=== PATIENT | female | born 1995 | race Caucasian/White ===

== ENCOUNTER → 2019-05-06 | Outpatient (CLI) | payer OTHER ==
[~2019-05-06] MED LIST: AMOXICILLIN500 MG PO; BACTRIM DS 8001 TA1 PO; DOXYCYCLINE100 M3 PO; MOTRIN800 MG PO
== END | disposition home or self-care (01) ==
LOC: RAD 12:24
DX: R76.11 Nonspecific reaction to tuberculin skin test without active tuberculosis (principal)

== ENCOUNTER → 2023-07-06 | Outpatient (CLI) | payer OTHER ==
[~2023-07-06] MED LIST changes: +DECADRON6 M1 PO; +PROVENTIL HFA6.7 GM INH; +TAMIFLU 75MG CA75 MG PO; +ZITHROMAX250 MG PO
[2023-07-06 16:23] LABS: BUN 6 mg/dl (9-23); CHLORIDE 108 mmol/L (98-107); POTASSIUM 3.6 mmol/L (3.4-5.1)
== END | disposition home or self-care (01) ==
LOC: LAB 15:47
PROVIDERS: ATTEND Internal Medicine
DX: U07.1 COVID-19 (principal)

== ENCOUNTER 2024-08-08 20:29 | Emergency (ER) | payer OTHER ==
[~2024-08-08] VITALS: Ht 175.2 cm; Wt 145.1 kg
[2024-08-08 20:43] VITALS: BP 134/73
[2024-08-08] MEDS ORDERED: PREDNISONE10 MG PO (21:24)
== END 2024-08-08 21:27 | disposition home or self-care (01) ==
LOC: ED 20:29
DX: J40 Bronchitis, not specified as acute or chronic (principal)